=== PATIENT | female | born 1950 | race Caucasian/White ===

== ENCOUNTER 2021-02-05 10:07 | Emergency (ER) | payer MEDICARE, OTHER ==
[2021-02-05 10:32] VITALS: BP 122/76; PULSE 74; TEMP 97; BMI 23.2
[2021-02-05] MEDS ORDERED: SODIUM PHOSPHATE/NA BIPHOS 133 ML ENEMA PR ONE (12:31)
== END 2021-02-05 15:36 | disposition home or self-care (01) ==
LOC: JER 10:07
DX: K59.00 Constipation, unspecified (principal)
CPT/HCPCS: 99283-25